=== PATIENT | female | born 1960 | race Caucasian/White ===

== ENCOUNTER 2016-11-10 12:35 | Emergency (ER) | payer SELFPAY ==
[~2016-11-10] VITALS: Ht 176.5 cm; Wt 141.6 kg
[~2016-11-10 12:35] MED LIST: ABX IV; AERONEB GO NEB1 EACH MC; ALBUTEROL SULF8.5 GM IH; ANXIETY MED PO; ASPIR 8181 M1 PO; ASPIR-LOW81 M1 PO; ATARAX,VISTARIL25 MG; ATARAX,VISTARIL25 MG PO; ATARAX,VISTARIL50 MG PO; ATORVASTATIN CA80 MG PO; ATROVENT 00.5 MG/2.5 IH; AUGMENTIN875 MG PO; Atarax,Vistaril PO; Ativan PO; B COMPLEX #11 EACH PO; B-121000 MC2 PO; BACLOFEN20 MG PO; BACTERICIN30 GM TP; BACTRIM,SEPT1 TABLET PO; BENADRYL25 MG PO; BENTYL10 MG PO; BETHANECHOL CHL25 MG PO; BRILINTA90 MG PO; Bactrim,Septra DS 80 PO; Bentyl PO; CALCIUM 500 +1 EAC5 PO; CALCIUM 600 +1 EAC2 PO; CALICUM 500+D1 EACH PO; CEFEPIME-D2 GM/50 ML IV; CEFTIN500 MG PO; CIPRO500 MG PO; CIPROFLOXACIN750 MG PO; CLARITIN,ALAVAR10 MG PO; CLEOCIN300 MG PO; COLACE100 MG PO; CONCERTA18 MG PO; CONCERTA27 MG PO; CYANOCOBALAM1000 MCG; CYANOCOBALAM1000 MCG PO; Colace PO; Concerta PO; DAILY VALUE1 EACH PO; DESYREL100 MG PO; DIAZEPAM10 MG PO; DILAUDID2 MG PO; DIPHENHIST25 M3 PO; DIPHENHYDRAMINE50 M1 PO; Dulcolax PO; ENDOCET 5-3251 EACH PO; ENOXAPARIN150 MG/1 M SC; ESCITALOPRAM OX10 MG PO; Ecotrin PO; FEOSOL325 MG PO; FEROSOL PO; FERREX 150150 MG PO; FERROUS SULFAT325 MG PO; FIORICET 50-301 EACH PO; FIORICET WI1 CAPSULE PO; FLEXERIL10 MG PO; FLEXERIL5 MG PO; FLONASE ALLERG9.9 ML BOTH NARES; FLONASE16 G1 BOTH NARES; FLOVENT 11120 INHALA IH; FUROSEMIDE40 MG PO; GABAPENTIN100 MG PO; GABAPENTIN600 MG PO; HYCODAN SYRUP480 ML PO; HYDROCODON-ACE1 EAC7 PO; HYDROCODON-ACE1 EAC8 PO; HYDROCODON-ACE1 EAC9 PO; IMDUR30 MG PO; IMITREX25 MG PO; INCRUSE ELLI62.5 MCG IH; IRON PO; IRON325 M1 PO; IRON325 MG PO; K-TAB10 MEQ PO; KEFLEX500 MG PO; KLONOPIN0.5 M1 PO; KLOR-CON 1010 ME1 PO; KLOR-CON M2020 MEQ PO; KLOR-CON20 MEQ PO; LAMICTAL200 MG PO; LANTUS 10100 UNITS/ SC; LANTUS 3 M100 UNITS1 SC; LASIX40 MG PO; LASIX80 MG PO; LEVOTHROID,S0.175 M1 PO; LEVOTHYROXINE175 MCG PO; LEVOXYL175 MCG PO; LEXAPRO10 MG PO; LEXAPRO20 MG PO; LIDODERM 5% P1 PATCH TD; LIDODERM TD; LINEZOLID600 MG PO; LIPITOR PO; LIPITOR80 MG PO; LISINOPRIL10 MG PO; LMX 530 GM TP; LO-DOSE ASPIRIN81 M1 PO; LORTAB 5-325 M1 EACH PO; LOVENOX120 MG/0.8 SC; LOVENOX150 MG/1 M PO; LOVENOX150 MG/1 M SC; LOVENOX60 MG/0.6 SC; LOVENOX80 MG/0.8 SC; LOW DOSE ASPIRI81 M1 PO; LOW DOSE ASPIRI81 M2 PO; Lasix PO; Levaquin PO; Levothroid,Synthroid PO; Lovenox SC; METOPROLOL SUCC25 MG PO; MS Contin,Oramorph S PO; Micro-K,K-Tab,K-Dur, PO; Milk Of Magnesia,MOM PO; NAPROSYN500 MG PO; NEURONTIN100 MG PO; NEURONTIN300 MG PO; NIFEREX-150,FE150 MG PO; NORCO 5/3251 TABLET PO; NOVOLIN R (UNI1 UNIT SC; NOVOLOG 10100 UNITS/ SC; NOVOLOG PE100 UNITS/ SC; Neurontin PO; Niferex-150,Ferrex 1 PO; Nizoral 2% Cream TP; OMEPRAZOLE20 MG PO; OMEPRAZOLE40 M1 PO; OXAYDO5 MG PO; OXECTA5 MG PO; OXYCODONE HCL5 MG PO; OXYCODONE10 MG PO; OxyCODONE PO; PEPCID20 MG PO; PERCOCET 5/31 TABLET PO; PERCOCET 7.51 TABLET PO; PHENERGAN25 MG PR; PLAVIX75 MG PO; POTASSIUM CHLO10 ME3 PO; PREDNISONE10 MG PO; PREDNISONE20 MG PO; PRILOSEC OTC20 M1 PO; PRILOSEC20 MG PO; PRILOSEC40 MG PO; PRINIVIL10 MG PO; PROAIR HFA8.5 GM IH; PROMETHAZINE HC25 M1 PO; PROVENTIL,2.5 MG/3 M IH; PULMICORT FLE180 MCG IH; PYRIDIUM100 MG PO; Pepcid PO; Proair HFA IH; Proventil,Ventolin H IH; RANITIDINE HCL150 MG PO; REGLAN10 MG PO; RISPERDAL0.5 MG PO; RISPERDAL1 MG PO; RITALIN LA20 MG PO; ROBITUSSIN AC,T10 ML PO; SANTYL30 GM TP; SINGULAIR10 MG PO; SKELAXIN400 M1 PO; SOMA350 MG PO; SPIRIVA RESPIMAT4 GM IH; SUMATRIPTAN SUC25 MG PO; SYNTHROID175 MCG PO; Singulair PO; TESSALON200 MG PO; TOPROL XL25 MG PO; TORADOL10 MG PO; TRAZODONE HCL100 MG PO; TYLENOL REGULA325 MG PO; TYLENOL WITH C1 EACH PO; Tylenol Regular Stre PO; VALIUM10 MG PO; VANCOMYCIN1 GM/150 M IV; VENTOLIN HFA18 GM IH; VICODIN 5-3001 EACH PO; VICODIN,LORT1 TABLET PO; VITAMIN B INJ SC; VITAMIN B-12500 MC2 PO; VITAMIN D1000 INTUN PO; VITAMIN D22000 UNIT PO; VITAMIN D31000 UNI2 PO; VITAMIN D32000 UNI1 PO; Valium PO; Vicodin,Norco 5/325 PO; Vitamin B-12 IM; WELLBUTRIN XL150 MG PO; XANAX1 MG PO; XANAX2 MG PO; XARELTO20 MG PO; ZANTAC150 MG PO; ZESTRIL10 MG PO; ZITHROMAX Z-PA250 MG PO; ZOCOR40 MG PO; ZOFRAN ODT4 MG PO; ZOFRAN ODT8 MG PO; ZOFRAN4 MG PO; ZOVIRAX400 MG PO; Zantac PO; Zocor PO; Zofran PO; [UNRECOGNIZED DRUG - OTHER] PO; oxyCODONE PO; risperDAL PO
[2016-11-10] MEDS ORDERED: FLEXERIL10 MG PO (16:13)
[2016-11-10] MEDS ORDERED: MOTRIN800 MG PO (16:13)
[2016-11-10 16:38] VITALS: BP 152/82
== END 2016-11-10 16:39 | disposition home or self-care (01) ==
LOC: EME 12:35
DX: S60.012A Contusion of left thumb without damage to nail, initial encounter (principal); S40.011A Contusion of right shoulder, initial encounter; V78.1XXA Passenger on bus injured in noncollision transport accident in nontraffic accident, initial encounter; Z88.6 Allergy status to analgesic agent; Z91.041 Radiographic dye allergy status; Z88.1 Allergy status to other antibiotic agents
CPT/HCPCS: 73030; 73070; 73090; 73130; 73502; 99281; 99284

== ENCOUNTER 2016-11-30 13:51 | Emergency (ER) | payer OTHER ==
[~2016-11-30] VITALS: Ht 175.3 cm; Wt 139.7 kg
[~2016-11-30 13:51] MED LIST changes: +MOTRIN800 MG PO
[2016-11-30] MEDS ORDERED: MOTRIN800 MG PO (15:42)
[2016-11-30 16:00] VITALS: BP 122/55
== END 2016-11-30 16:26 | disposition home or self-care (01) ==
LOC: EME 13:51
DX: S16.1XXA Strain of muscle, fascia and tendon at neck level, initial encounter (principal); V49.50XA Passenger injured in collision with unspecified motor vehicles in traffic accident, initial encounter
CPT/HCPCS: 99281; 99284

== ENCOUNTER 2016-12-30 13:06 | Emergency (ER) | payer OTHER ==
[~2016-12-30] VITALS: Ht 175.3 cm; Wt 144.2 kg
[2016-12-30 14:26] LABS: EOSINOPHIL COUNT 0.1 K/uL (0-0.3); HEMATOCRIT 33.3 % (36.0-46.0); IMMATURE GRANULOCYTE (%) 0.9 % (0.0-0.7); IMMATURE GRANULOCYTE COUNT 0.1 K/uL; INSTRUMENT ABS NEUTROPHIL CT 4.2 K/uL; LYMPHOCYTE COUNT 2.1 K/uL (1.0-2.8); MCH 27.1 PG (29.0-34.0); MCHC 30.3 G/DL (30.0-36.0); MCV 89.3 FL (83-99); MEAN PLAT.VOLUME 8.8 uM^3 (9.5-12.4); MONOCYTE (%) 7.7 % (3-12); MONOCYTE COUNT 0.5 K/uL (0-0.8); NEUTROPHIL (%) 59.5 % (45-76); NEUTROPHIL COUNT 4.2 K/uL (1.8-6.4); PLATELET COUNT 387 K/uL (156-360); RBC DIS.WIDTH-CV 15.9 % (11.8-14.6); RBC DIS.WIDTH-SD 51.8 % (39-53); RED BLOOD COUNT 3.73 M/uL (3.80-5.20)
[2016-12-30 14:35] LABS: CHLORIDE 104 mEq/L (99-109); SODIUM 142 mEq/L (136-147)
[2016-12-30 14:36] LABS: GLUCOSE 71 mg/dL (70-99)
[2016-12-30 14:38] LABS: ANION GAP 9 MEQ/L (2-14)
[2016-12-30 14:40] LABS: GFR ESTIMATE (CALCULATED) > 59 mL/min/
[2016-12-30 14:41] LABS: UREA NITROGEN (BUN) 19 mg/dL (9-23)
[2016-12-30 14:55] LABS: INTER. NORMALIZED RATIO 1.1; PROTHROMBIN TIME 11.5 (9.2-11.2); PTT 35.7 (25-32)
[2016-12-30] MEDS ORDERED: PHENERGAN25 MG PR (17:27)
[2016-12-30 18:00] VITALS: BP 113/49
== END 2016-12-30 18:00 | disposition home or self-care (01) ==
LOC: EME 13:06
PROVIDERS: Physician Assistant
DX: L03.116 Cellulitis of left lower limb (principal); I82.512 Chronic embolism and thrombosis of left femoral vein; I82.532 Chronic embolism and thrombosis of left popliteal vein; L98.499 Non-pressure chronic ulcer of skin of other sites with unspecified severity; A49.02 Methicillin resistant Staphylococcus aureus infection, unspecified site; R11.2 Nausea with vomiting, unspecified; Z86.711 Personal history of pulmonary embolism; Z95.5 Presence of coronary angioplasty implant and graft; Z79.01 Long term (current) use of anticoagulants; Z87.891 Personal history of nicotine dependence
CPT/HCPCS: 80048; 83605; 85025; 85610; 85730; 87040; 93971; 99281; 99285; J2270; J2543

== ENCOUNTER → 2017-01-07 | Outpatient (CLI) | payer OTHER | END | disposition home or self-care (01) | LOC: PICC 08:35 | DX: L03.116 Cellulitis of left lower limb (principal) | CPT/HCPCS: 76937; C1894 ==

== ENCOUNTER 2017-02-14 19:58 | Inpatient (IN) | payer OTHER ==
[~2017-02-14] VITALS: Ht 176.5 cm; Wt 116.0 kg
[~2017-02-14 19:58] MED LIST changes: +PROTONIX40 MG PO
[2017-02-14 23:16] LABS: HEMATOCRIT 31.1 % (36.0-46.0); MCH 28.1 PG (29.0-34.0); MCHC 30.9 G/DL (30.0-36.0); MCV 90.9 FL (83-99); MEAN PLAT.VOLUME 8.7 uM^3 (9.5-12.4); PLATELET COUNT 286 K/uL (156-360); RBC DIS.WIDTH-CV 16.3 % (11.8-14.6); RBC DIS.WIDTH-SD 53.9 % (39-53); RED BLOOD COUNT 3.42 M/uL (3.80-5.20); WHITE BLOOD COUNT 5.6 K/uL (4.1-10.2)
[2017-02-14 23:23] LABS: CHLORIDE 107 mEq/L (99-109); POTASSIUM 3.8 mEq/L (3.7-5.4); SODIUM 144 mEq/L (136-147)
[2017-02-14 23:25] LABS: GLUCOSE 84 mg/dL (70-99)
[2017-02-14 23:26] LABS: ANION GAP 9 MEQ/L (2-14)
[2017-02-14 23:29] LABS: GFR ESTIMATE (CALCULATED) > 59 mL/min/; UREA NITROGEN (BUN) 15 mg/dL (9-23)
[2017-02-15 00:49] LABS: ADD MIUA? NO; BILIRUBIN NEGATIVE; BLOOD NEGATIVE; COLOR YELLOW ((YELLOW)); GLUCOSE (STRIP) NEGATIVE; KETONES NEGATIVE; LEUKOCYTES NEGATIVE; NITRITE NEGATIVE; PROTEIN (STRIP) 30; SPECIFIC GRAVITY 1.025 (1.000-1.030); UROBILINOGEN 0.2 MG/DL (0.2-1.0)
[2017-02-15] MEDS ORDERED: LEVOTHYROXINE175 MCG PO (02:10)
[2017-02-15] MEDS ORDERED: METOPROLOL SUCC25 MG PO (02:10)
[2017-02-15] MEDS ORDERED: CLOPIDOGREL75 MG PO (02:10)
[2017-02-15] MEDS ORDERED: MONTELUKAST SOD10 MG PO (02:10)
[2017-02-15] MEDS ORDERED: GABAPENTIN600 MG PO (02:11)
[2017-02-15] MEDS ORDERED: FUROSEMIDE40 MG PO (02:13)
[2017-02-15] MEDS ORDERED: BUPROPION XL150 MG PO (02:13)
[2017-02-15 05:39] VITALS: BP 147/79
[2017-02-15 06:27] LABS: HEMATOCRIT 30.5 % (36.0-46.0); MCH 28.7 PG (29.0-34.0); MCHC 31.5 G/DL (30.0-36.0); PLATELET COUNT 273 K/uL (156-360); RBC DIS.WIDTH-CV 16.3 % (11.8-14.6); RBC DIS.WIDTH-SD 55.1 % (39-53); RED BLOOD COUNT 3.35 M/uL (3.80-5.20); WHITE BLOOD COUNT 4.7 K/uL (4.1-10.2)
[2017-02-15 07:34] LABS: ALKALINE PHOSPHATASE 50 IU/L (3-129); ANION GAP 10 MEQ/L (2-14); CHLORIDE 107 MEQ/L (99-109); GFR ESTIMATE (CALCULATED) > 59 mL/min/; POTASSIUM 4.1 MEQ/L (3.7-5.4); SAMPLE HEMOLYSIS CHECK 0; SAMPLE ICTERIC CHECK 0; SAMPLE LIPEMIA CHECK 0; SODIUM 144 MEQ/L (136-147); TOTAL BILIRUBIN 0.2 MG/DL (0.0-1.0); UREA NITROGEN (BUN) 15 mg/dL (9-23)
[2017-02-15 07:51] LABS: GLUCOSE 161 mg/dL (70-99)
[2017-02-15 08:15] VITALS: BP 125/72
[2017-02-15 12:06] VITALS: BP 112/67
[2017-02-15 15:37] VITALS: BP 130/67
[2017-02-15 19:55] VITALS: BP 130/74
[2017-02-15 23:46] VITALS: BP 129/70
[2017-02-16 03:35] VITALS: BP 124/71
[2017-02-16 08:03] VITALS: BP 112/61
[2017-02-16 11:45] VITALS: BP 123/64
[2017-02-16 16:01] VITALS: BP 127/72
[2017-02-16 19:49] VITALS: BP 120/69
[2017-02-17] VITALS: BP 123/68
[2017-02-17 03:36] VITALS: BP 122/65
[2017-02-17] MEDS ORDERED: AMITRIPTYLINE H25 MG PO (07:43)
[2017-02-17 07:51] VITALS: BP 114/66
[2017-02-17] MEDS ORDERED: GABAPENTIN600 MG PO (11:20)
[2017-02-17] MEDS ORDERED: LOVENOX80 MG/0.8 SC (11:20)
[2017-02-17] MEDS ORDERED: TRAZODONE HCL100 MG PO (11:20)
[2017-02-17] MEDS ORDERED: FUROSEMIDE40 MG PO (11:21)
[2017-02-17] MEDS ORDERED: LEVOTHYROXINE175 MCG PO (11:21)
[2017-02-17] MEDS ORDERED: XANAX1 MG PO (11:22)
[2017-02-17] MEDS ORDERED: HYDROCODON-ACE1 EAC9 PO (11:22)
[2017-02-17] MEDS ORDERED: NEURONTIN300 MG PO (11:33)
[2017-02-17] MEDS ORDERED: OMEPRAZOLE40 M1 PO (11:35)
[2017-02-17] MEDS ORDERED: KLOR-CON M2020 MEQ PO (11:36)
[2017-02-17] MEDS ORDERED: FERROUS SULFAT325 MG PO (11:37)
[2017-02-17] MEDS ORDERED: VITAMIN D22000 UNIT PO (11:37)
[2017-02-17] MEDS ORDERED: B-COMPLEX-VITA1 EACH PO (11:38)
[2017-02-17] MEDS ORDERED: DIPHENHYDRAMINE50 M1 PO (11:38)
[2017-02-17] MEDS ORDERED: CALCIUM600 M1 PO (11:39)
[2017-02-17] MEDS ORDERED: LISINOPRIL10 MG PO (11:39)
[2017-02-17] MEDS ORDERED: ISOSORBIDE MONO30 MG PO (11:39)
[2017-02-17] MEDS ORDERED: VITAMIN B-12500 MC5 SL (11:40)
[2017-02-17] MEDS ORDERED: VENTOLIN HFA18 GM IH (11:40)
[2017-02-17 12:26] VITALS: BP 104/63
== END 2017-02-17 13:51 | disposition home health service (06) | DRG 103 ==
LOC: EME 19:58 → 5SOUTH 02-15 03:18 → EDOF 02-15 03:18 → 5SOUTH 02-15 05:29
PROVIDERS: Internal Medicine; Physician Assistant
DX: R51 Headache (principal); L97.829 Non-pressure chronic ulcer of other part of left lower leg with unspecified severity; I89.0 Lymphedema, not elsewhere classified; J32.9 Chronic sinusitis, unspecified; I48.0 Paroxysmal atrial fibrillation; J44.9 Chronic obstructive pulmonary disease, unspecified; E78.5 Hyperlipidemia, unspecified; I25.10 Atherosclerotic heart disease of native coronary artery without angina pectoris; F31.9 Bipolar disorder, unspecified; I87.8 Other specified disorders of veins; I10 Essential (primary) hypertension; D50.9 Iron deficiency anemia, unspecified; E03.9 Hypothyroidism, unspecified; I71.2 Thoracic aortic aneurysm, without rupture; I51.7 Cardiomegaly; E66.01 Morbid (severe) obesity due to excess calories; Z90.49 Acquired absence of other specified parts of digestive tract; Z68.37 Body mass index [BMI] 37.0-37.9, adult; Z87.891 Personal history of nicotine dependence; Z95.5 Presence of coronary angioplasty implant and graft; Z86.711 Personal history of pulmonary embolism; Z86.718 Personal history of other venous thrombosis and embolism; Z79.01 Long term (current) use of anticoagulants; Z86.73 Personal history of transient ischemic attack (TIA), and cerebral infarction without residual deficits; Z76.5 Malingerer [conscious simulation]
CPT/HCPCS: 70450; 70551; 80048; 80053; 81003; 85027; 99281; 99285; A6260; J1100; J1650; J2060; J2405; J2765; J2930; J3030; J7030

== ENCOUNTER 2017-03-09 11:37 | Emergency (ER) | payer OTHER ==
[~2017-03-09] VITALS: Ht 175.3 cm; Wt 137.5 kg
[~2017-03-09 11:37] MED LIST changes: +AMITRIPTYLINE H25 MG PO; +B-COMPLEX-VITA1 EACH PO; +BUPROPION XL150 MG PO; +CALCIUM600 M1 PO; +CLOPIDOGREL75 MG PO; +ISOSORBIDE MONO30 MG PO; +MONTELUKAST SOD10 MG PO; +VITAMIN B-12500 MC5 SL
[2017-03-09 14:08] LABS: EOSINOPHIL (%) 2.2 % (0-5); EOSINOPHIL COUNT 0.1 K/uL (0-0.3); HEMATOCRIT 31.6 % (36.0-46.0); IMMATURE GRANULOCYTE (%) 0.4 % (0.0-0.7); INSTRUMENT ABS NEUTROPHIL CT 2.9 K/uL; LYMPHOCYTE COUNT 1.8 K/uL (1.0-2.8); MCH 28.1 PG (29.0-34.0); MCHC 30.1 G/DL (30.0-36.0); MCV 93.5 FL (83-99); MEAN PLAT.VOLUME 8.7 uM^3 (9.5-12.4); MONOCYTE (%) 8.2 % (3-12); MONOCYTE COUNT 0.4 K/uL (0-0.8); NEUTROPHIL COUNT 2.9 K/uL (1.8-6.4); RBC DIS.WIDTH-CV 15.5 % (11.8-14.6); RBC DIS.WIDTH-SD 53.1 % (39-53); RED BLOOD COUNT 3.38 M/uL (3.80-5.20); WHITE BLOOD COUNT 5.4 K/uL (4.1-10.2)
[2017-03-09 14:09] LABS: PLATELET COUNT 355 K/uL (156-360)
[2017-03-09 14:15] LABS: CHLORIDE 106 mEq/L (99-109); POTASSIUM 3.8 mEq/L (3.7-5.4); SODIUM 141 mEq/L (136-147)
[2017-03-09 14:16] LABS: GLUCOSE 84 mg/dL (70-99)
[2017-03-09 14:18] LABS: ANION GAP 11 MEQ/L (2-14)
[2017-03-09 14:20] LABS: GFR ESTIMATE (CALCULATED) > 59 mL/min/
[2017-03-09 14:21] LABS: UREA NITROGEN (BUN) 13 mg/dL (9-23)
[2017-03-09] MEDS ORDERED: NORCO 5/3251 TABLET PO (20:34)
[2017-03-09 21:15] VITALS: BP 151/95
[2017-03-13] MEDS ORDERED: ELAVIL25 MG PO (08:35)
[2017-03-13] MEDS ORDERED: TOPAMAX50 MG PO (08:36)
[2017-03-15] MEDS ORDERED: PREDNISONE20 MG PO (16:48)
== END 2017-03-09 21:17 | disposition home or self-care (01) ==
LOC: EME 11:37
DX: L03.116 Cellulitis of left lower limb (principal); S81.802A Unspecified open wound, left lower leg, initial encounter; D64.9 Anemia, unspecified; K21.9 Gastro-esophageal reflux disease without esophagitis; J44.9 Chronic obstructive pulmonary disease, unspecified; E78.5 Hyperlipidemia, unspecified; I48.91 Unspecified atrial fibrillation; I10 Essential (primary) hypertension; Z86.73 Personal history of transient ischemic attack (TIA), and cerebral infarction without residual deficits; Z87.891 Personal history of nicotine dependence; Z87.442 Personal history of urinary calculi
CPT/HCPCS: 73590; 80048; 83605; 85025; 87040; 99281; 99285; J0696; J2270; J7050

== ENCOUNTER 2017-03-27 19:58 | Inpatient (IN) | payer OTHER ==
[~2017-03-27] VITALS: Ht 175.3 cm; Wt 137.6 kg
[~2017-03-27 19:58] MED LIST changes: +ELAVIL25 MG PO; +TOPAMAX50 MG PO
[2017-03-27 20:32] LABS: HEMATOCRIT 35.4 % (36.0-46.0); MCH 28.1 PG (29.0-34.0); MCHC 30.2 G/DL (30.0-36.0); MCV 92.9 FL (83-99); PLATELET COUNT 313 K/uL (156-360); RBC DIS.WIDTH-SD 54.4 % (39-53); RED BLOOD COUNT 3.81 M/uL (3.80-5.20); WHITE BLOOD COUNT 12.4 K/uL (4.1-10.2)
[2017-03-27 20:43] LABS: CHLORIDE 105 mEq/L (99-109); POTASSIUM 4.2 mEq/L (3.7-5.4); SODIUM 138 mEq/L (136-147)
[2017-03-27 20:45] LABS: GLUCOSE 167 mg/dL (70-99)
[2017-03-27 20:46] LABS: ANION GAP 11 MEQ/L (2-14)
[2017-03-27 20:49] LABS: GFR ESTIMATE (CALCULATED) > 59 mL/min/; UREA NITROGEN (BUN) 26 mg/dL (9-23)
[2017-03-27 20:53] LABS: TROP-I INTERPRETATION NEGATIVE; TROPONIN-I < 0.01 ng/mL (0.0-0.30)
[2017-03-27] MEDS ORDERED: CALCIUM 600 +1 EAC2 PO (22:15)
[2017-03-27] MEDS ORDERED: NEURONTIN800 MG PO (22:17)
[2017-03-27] MEDS ORDERED: HYDROCODON-ACE1 EAC9 PO (22:18)
[2017-03-27] MEDS ORDERED: ZOFRAN4 MG PO (22:19)
[2017-03-27] MEDS ORDERED: IBUPROFEN800 MG PO (22:20)
[2017-03-27] MEDS ORDERED: ISOSORBIDE MONO30 MG PO (22:20)
[2017-03-27] MEDS ORDERED: PROVENTIL,2.5 MG/3 M IH (22:20)
[2017-03-27 23:01] LABS: HDL CHOLESTEROL 55 MG/DL (Desirable>=50); LDL CHOLESTEROL 93 mg/dL (Desirable<100); NON-HDL CHOLESTEROL 128 mg/dL (Desirable<160); TOTAL CHOLESTEROL 183 mg/dL (Desirable<200); TRIGLYCERIDES 174 MG/DL (Normal: <150)
[2017-03-28 00:01] VITALS: BP 100/53
[2017-03-28 04:04] VITALS: BP 106/51
[2017-03-28 07:40] VITALS: BP 100/62
[2017-03-28 09:41] LABS: TROP-I INTERPRETATION NEGATIVE; TROPONIN-I < 0.01 ng/mL (0.0-0.30)
[2017-03-28 11:43] VITALS: BP 90/55
[2017-03-28 15:12] VITALS: BP 105/56
[2017-03-28 20:00] VITALS: BP 122/62
[2017-03-29 05:45] LABS: EOSINOPHIL (%) 0.1 % (0-5); HEMATOCRIT 32.8 % (36.0-46.0); IMMATURE GRANULOCYTE (%) 2.1 % (0.0-0.7); IMMATURE GRANULOCYTE COUNT 0.2 K/uL; INSTRUMENT ABS NEUTROPHIL CT 7.1 K/uL; LYMPHOCYTE COUNT 2.7 K/uL (1.0-2.8); MCH 28.9 PG (29.0-34.0); MCHC 30.5 G/DL (30.0-36.0); MCV 94.8 FL (83-99); MEAN PLAT.VOLUME 8.9 uM^3 (9.5-12.4); MONOCYTE (%) 6.2 % (3-12); MONOCYTE COUNT 0.7 K/uL (0-0.8); NEUTROPHIL (%) 66.4 % (45-76); NEUTROPHIL COUNT 7.1 K/uL (1.8-6.4); NRBC (%) 0.3 /100 WBC (0-0); PLATELET COUNT 255 K/uL (156-360); RBC DIS.WIDTH-CV 16.2 % (11.8-14.6); RBC DIS.WIDTH-SD 56.1 % (39-53); RED BLOOD COUNT 3.46 M/uL (3.80-5.20); WHITE BLOOD COUNT 10.7 K/uL (4.1-10.2)
[2017-03-29 06:12] LABS: ANION GAP 6 MEQ/L (2-14); CHLORIDE 99 MEQ/L (99-109); GFR ESTIMATE (CALCULATED) > 59 mL/min/; POTASSIUM 4.5 MEQ/L (3.7-5.4); SAMPLE HEMOLYSIS CHECK 0; SAMPLE ICTERIC CHECK 0; SAMPLE LIPEMIA CHECK 0; SODIUM 139 MEQ/L (136-147); UREA NITROGEN (BUN) 21 mg/dL (9-23)
[2017-03-29 06:23] LABS: GLUCOSE 90 mg/dL (70-99)
[2017-03-29 08:05] VITALS: BP 132/63
[2017-03-29] MEDS ORDERED: FLEXERIL5 MG PO (12:50)
== END 2017-03-29 14:48 | disposition home or self-care (01) | DRG 309 ==
LOC: EME 19:58 → EDOF 22:06 → 5WEST 23:13
PROVIDERS: Physician Assistant Medical; Student in an Organized Health Care Education/Training Program
DX: R00.2 Palpitations (principal); I82.402 Acute embolism and thrombosis of unspecified deep veins of left lower extremity; L97.929 Non-pressure chronic ulcer of unspecified part of left lower leg with unspecified severity; Z68.41 Body mass index [BMI] 40.0-44.9, adult; K21.9 Gastro-esophageal reflux disease without esophagitis; I25.10 Atherosclerotic heart disease of native coronary artery without angina pectoris; J44.9 Chronic obstructive pulmonary disease, unspecified; F31.9 Bipolar disorder, unspecified; E78.5 Hyperlipidemia, unspecified; F41.9 Anxiety disorder, unspecified; G47.33 Obstructive sleep apnea (adult) (pediatric); I87.8 Other specified disorders of veins; I48.0 Paroxysmal atrial fibrillation; I11.0 Hypertensive heart disease with heart failure; I25.2 Old myocardial infarction; I50.9 Heart failure, unspecified; E66.01 Morbid (severe) obesity due to excess calories; Z87.891 Personal history of nicotine dependence; Z82.49 Family history of ischemic heart disease and other diseases of the circulatory system; Z79.899 Other long term (current) drug therapy; Z95.1 Presence of aortocoronary bypass graft
CPT/HCPCS: 71020; 78582; 80048; 80061; 84439; 84443; 84484; 85025; 85027; 93005; 94799; 99202; 99281; 99285; A6260; A9540; A9567; G0378; J1170; J1650; J7512

== ENCOUNTER 2017-04-17 21:55 | Emergency (ER) | payer OTHER ==
[~2017-04-17] VITALS: Ht 175.3 cm; Wt 148.6 kg
[~2017-04-17 21:55] MED LIST changes: +IBUPROFEN800 MG PO; +NEURONTIN800 MG PO
[2017-04-18 03:40] LABS: HEMATOCRIT 33.8 % (36.0-46.0); MCH 28.8 PG (29.0-34.0); MCHC 30.5 G/DL (30.0-36.0); MCV 94.4 FL (83-99); MEAN PLAT.VOLUME 8.5 uM^3 (9.5-12.4); PLATELET COUNT 247 K/uL (156-360); RBC DIS.WIDTH-CV 16.8 % (11.8-14.6); RBC DIS.WIDTH-SD 58.3 % (39-53); RED BLOOD COUNT 3.58 M/uL (3.80-5.20); WHITE BLOOD COUNT 7.9 K/uL (4.1-10.2)
[2017-04-18 03:49] LABS: CHLORIDE 100 mEq/L (99-109); POTASSIUM 4.3 mEq/L (3.7-5.4); SODIUM 140 mEq/L (136-147)
[2017-04-18 03:51] LABS: GLUCOSE 82 mg/dL (70-99)
[2017-04-18 03:52] LABS: ANION GAP 8 MEQ/L (2-14)
[2017-04-18 03:55] LABS: GFR ESTIMATE (CALCULATED) > 59 mL/min/; UREA NITROGEN (BUN) 24 mg/dL (9-23)
[2017-04-18 04:31] VITALS: BP 128/90
[2017-04-18 04:52] LABS: ERTH.SED.RATE 43 MM/HR (0-30)
[2017-04-18 06:29] LABS: C-REACTIVE PROTEIN 12.8 MG/L (0-10); SAMPLE HEMOLYSIS CHECK 0; SAMPLE ICTERIC CHECK 0; SAMPLE LIPEMIA CHECK 0
[2017-04-20] MEDS ORDERED: PERCOCET 5/31 TABLET PO (09:01)
== END 2017-04-18 04:35 | disposition home or self-care (01) ==
LOC: EME 21:55
PROVIDERS: Emergency Medicine
DX: S80.12XA Contusion of left lower leg, initial encounter (principal); W01.198A Fall on same level from slipping, tripping and stumbling with subsequent striking against other object, initial encounter; L03.116 Cellulitis of left lower limb; Z88.1 Allergy status to other antibiotic agents; Z79.52 Long term (current) use of systemic steroids; Z79.02 Long term (current) use of antithrombotics/antiplatelets
CPT/HCPCS: 73590; 73630; 73700; 80048; 85027; 85651; 86140; 99281; 99283

== ENCOUNTER 2017-04-30 23:38 | Emergency (ER) | payer OTHER ==
[~2017-04-30] VITALS: Ht 175.3 cm; Wt 153.1 kg
[2017-05-01 00:23] LABS: HEMATOCRIT 37.6 % (36.0-46.0); MCH 28.5 PG (29.0-34.0); MCHC 30.6 G/DL (30.0-36.0); MCV 93.1 FL (83-99); MEAN PLAT.VOLUME 8.8 uM^3 (9.5-12.4); PLATELET COUNT 257 K/uL (156-360); RBC DIS.WIDTH-CV 16.6 % (11.8-14.6); RED BLOOD COUNT 4.04 M/uL (3.80-5.20)
[2017-05-01 00:35] LABS: CHLORIDE 100 mEq/L (99-109); POTASSIUM 4.1 mEq/L (3.7-5.4); SODIUM 139 mEq/L (136-147)
[2017-05-01 00:37] LABS: GLUCOSE 87 mg/dL (70-99)
[2017-05-01 00:38] LABS: ANION GAP 11 MEQ/L (2-14)
[2017-05-01 00:41] LABS: GFR ESTIMATE (CALCULATED) > 59 mL/min/
[2017-05-01 00:42] LABS: UREA NITROGEN (BUN) 22 mg/dL (9-23)
[2017-05-01] MEDS ORDERED: TESSALON PERLE100 MG PO (02:24)
[2017-05-01 03:17] VITALS: BP 108/64
== END 2017-05-01 03:26 | disposition home or self-care (01) ==
LOC: EME 23:38
DX: J44.1 Chronic obstructive pulmonary disease with (acute) exacerbation (principal); J45.909 Unspecified asthma, uncomplicated; I10 Essential (primary) hypertension; Z86.711 Personal history of pulmonary embolism; Z86.718 Personal history of other venous thrombosis and embolism; Z95.5 Presence of coronary angioplasty implant and graft; Z79.02 Long term (current) use of antithrombotics/antiplatelets; Z79.52 Long term (current) use of systemic steroids
CPT/HCPCS: 71020; 80048; 85027; 94640; 94644; 99281; 99284; J7512

== ENCOUNTER 2017-05-08 17:24 | Emergency (ER) | payer OTHER ==
[~2017-05-08] VITALS: Ht 175.3 cm; Wt 153.1 kg
[~2017-05-08 17:24] MED LIST changes: +TESSALON PERLE100 MG PO
[2017-05-08 18:26] LABS: HEMATOCRIT 35.6 % (36.0-46.0); MCH 27.9 PG (29.0-34.0); MCHC 30.1 G/DL (30.0-36.0); MCV 92.7 FL (83-99); MEAN PLAT.VOLUME 8.7 uM^3 (9.5-12.4); PLATELET COUNT 229 K/uL (156-360); RBC DIS.WIDTH-CV 16.5 % (11.8-14.6); RBC DIS.WIDTH-SD 56.4 % (39-53); RED BLOOD COUNT 3.84 M/uL (3.80-5.20); WHITE BLOOD COUNT 9.1 K/uL (4.1-10.2)
[2017-05-08 18:38] LABS: CHLORIDE 104 mEq/L (99-109); POTASSIUM 4.6 mEq/L (3.7-5.4); SODIUM 140 mEq/L (136-147)
[2017-05-08 18:40] LABS: GLUCOSE 110 mg/dL (70-99)
[2017-05-08 18:41] LABS: ANION GAP 10 MEQ/L (2-14)
[2017-05-08 18:44] LABS: GFR ESTIMATE (CALCULATED) > 59 mL/min/
[2017-05-08 18:45] LABS: UREA NITROGEN (BUN) 28 mg/dL (9-23)
[2017-05-08 18:52] LABS: TROP-I INTERPRETATION NEGATIVE; TROPONIN-I < 0.01 ng/mL (0.0-0.30)
[2017-05-08 19:08] LABS: D-DIMER ELISA < 150.00 ng/mLDDU (<230)
[2017-05-08 20:37] LABS: TROP-I INTERPRETATION NEGATIVE; TROPONIN-I < 0.01 ng/mL (0.0-0.30)
[2017-05-08] MEDS ORDERED: VALIUM5 MG PO (20:41)
[2017-05-08] MEDS ORDERED: PERCOCET 5/31 TABLET PO (20:41)
[2017-05-08 20:53] VITALS: BP 154/92
== END 2017-05-08 20:54 | disposition home or self-care (01) ==
LOC: EME 17:24
PROVIDERS: Emergency Medicine
DX: R07.89 Other chest pain (principal); I10 Essential (primary) hypertension; J44.9 Chronic obstructive pulmonary disease, unspecified; K21.9 Gastro-esophageal reflux disease without esophagitis; E78.5 Hyperlipidemia, unspecified; R56.9 Unspecified convulsions; I25.2 Old myocardial infarction; Z95.5 Presence of coronary angioplasty implant and graft; Z87.442 Personal history of urinary calculi; Z86.718 Personal history of other venous thrombosis and embolism; Z86.711 Personal history of pulmonary embolism
CPT/HCPCS: 71020; 80048; 84484; 85027; 85379; 93005; 99281; 99284; J2270; J3360

== ENCOUNTER 2017-06-02 00:07 | Emergency (ER) | payer OTHER ==
[~2017-06-02] VITALS: Ht 175.3 cm; Wt 153.0 kg
[~2017-06-02 00:07] MED LIST changes: +VALIUM5 MG PO
[2017-06-02 01:12] LABS: HEMATOCRIT 29.1 % (36.0-46.0); MCH 28.3 PG (29.0-34.0); MCHC 30.6 G/DL (30.0-36.0); MCV 92.7 FL (83-99); RBC DIS.WIDTH-CV 15.9 % (11.8-14.6); RBC DIS.WIDTH-SD 53.1 % (39-53); RED BLOOD COUNT 3.14 M/uL (3.80-5.20); WHITE BLOOD COUNT 7.5 K/uL (4.1-10.2)
[2017-06-02 01:17] LABS: CHLORIDE 103 mEq/L (99-109); SODIUM 138 mEq/L (136-147)
[2017-06-02 01:19] LABS: GLUCOSE 122 mg/dL (70-99)
[2017-06-02 01:20] LABS: ANION GAP 13 MEQ/L (2-14)
[2017-06-02 01:23] LABS: GFR ESTIMATE (CALCULATED) > 59 mL/min/
[2017-06-02 01:24] LABS: UREA NITROGEN (BUN) 23 mg/dL (9-23)
[2017-06-02 02:31] LABS: MEAN PLAT.VOLUME 10.3 uM^3 (9.5-12.4); PLAT.SUFFICIENCY ADEQUATE
[2017-06-02 02:32] LABS: PLATELET COUNT 157 K/uL (156-360)
[2017-06-02 03:38] LABS: MCH 28.1 PG (29.0-34.0); MCHC 30.3 G/DL (30.0-36.0); MCV 92.7 FL (83-99); MEAN PLAT.VOLUME 8.9 uM^3 (9.5-12.4); RBC DIS.WIDTH-CV 15.9 % (11.8-14.6); RBC DIS.WIDTH-SD 53.8 % (39-53); RED BLOOD COUNT 3.13 M/uL (3.80-5.20); WHITE BLOOD COUNT 9.9 K/uL (4.1-10.2)
[2017-06-02 03:40] LABS: PLATELET COUNT 272 K/uL (156-360)
[2017-06-02 05:45] VITALS: BP 115/81
== END 2017-06-02 05:50 | disposition home or self-care (01) ==
LOC: EME → EDBD 00:07 → EME 05:50
PROVIDERS: Emergency Medicine
DX: L97.929 Non-pressure chronic ulcer of unspecified part of left lower leg with unspecified severity (principal); R58 Hemorrhage, not elsewhere classified; D64.9 Anemia, unspecified; Z79.01 Long term (current) use of anticoagulants; J44.9 Chronic obstructive pulmonary disease, unspecified; E78.5 Hyperlipidemia, unspecified; I10 Essential (primary) hypertension; R56.9 Unspecified convulsions; I25.2 Old myocardial infarction; Z87.442 Personal history of urinary calculi; Z86.718 Personal history of other venous thrombosis and embolism; Z88.6 Allergy status to analgesic agent; Z88.1 Allergy status to other antibiotic agents
CPT/HCPCS: 80048; 85027; 99281; 99284; J1200; J2270; J2405; J2765; J7030

== ENCOUNTER 2017-06-10 16:17 | Emergency (ER) | payer OTHER ==
[~2017-06-10] VITALS: Ht 175.3 cm; Wt 152.3 kg
[2017-06-10 18:18] LABS: HEMATOCRIT 27.7 % (36.0-46.0); MCH 28.1 PG (29.0-34.0); MCHC 29.2 G/DL (30.0-36.0); MCV 96.2 FL (83-99); MEAN PLAT.VOLUME 9.2 uM^3 (9.5-12.4); NRBC (%) 0.3 /100 WBC (0-0); PLATELET COUNT 379 K/uL (156-360); RBC DIS.WIDTH-CV 17.1 % (11.8-14.6); RBC DIS.WIDTH-SD 58.4 % (39-53); RED BLOOD COUNT 2.88 M/uL (3.80-5.20); WHITE BLOOD COUNT 7.1 K/uL (4.1-10.2)
[2017-06-10 21:22] VITALS: BP 165/67
[2017-06-11] MEDS ORDERED: KADIAN10 MG PO (11:58)
== END 2017-06-10 21:25 | disposition home or self-care (01) ==
LOC: EME 16:17
DX: D64.9 Anemia, unspecified (principal); I11.0 Hypertensive heart disease with heart failure; I50.9 Heart failure, unspecified; J44.9 Chronic obstructive pulmonary disease, unspecified; E78.5 Hyperlipidemia, unspecified; K21.9 Gastro-esophageal reflux disease without esophagitis; I25.2 Old myocardial infarction; F32.9 Major depressive disorder, single episode, unspecified; F41.9 Anxiety disorder, unspecified; Z95.5 Presence of coronary angioplasty implant and graft; Z87.442 Personal history of urinary calculi; Z88.0 Allergy status to penicillin; Z79.02 Long term (current) use of antithrombotics/antiplatelets
CPT/HCPCS: 85027; 86850; 86900; 86901; 86920; 99281; 99284

== ENCOUNTER 2017-06-12 00:20 | Emergency (ER) | payer OTHER ==
[~2017-06-12] VITALS: Ht 175.3 cm; Wt 151.4 kg
[~2017-06-12 00:20] MED LIST changes: +KADIAN10 MG PO
[2017-06-12 02:29] LABS: HEMATOCRIT 27.6 % (36.0-46.0); MCH 28.1 PG (29.0-34.0); MCHC 30.4 G/DL (30.0-36.0); MCV 92.3 FL (83-99); MEAN PLAT.VOLUME 8.6 uM^3 (9.5-12.4); PLATELET COUNT 334 K/uL (156-360); RBC DIS.WIDTH-CV 18.9 % (11.8-14.6); RBC DIS.WIDTH-SD 61.1 % (39-53); RED BLOOD COUNT 2.99 M/uL (3.80-5.20); WHITE BLOOD COUNT 5.9 K/uL (4.1-10.2)
[2017-06-12 02:42] LABS: CHLORIDE 105 mEq/L (99-109); POTASSIUM 4.1 mEq/L (3.7-5.4); SODIUM 141 mEq/L (136-147)
[2017-06-12 02:43] LABS: GLUCOSE 96 mg/dL (70-99)
[2017-06-12 02:45] LABS: ANION GAP 11 MEQ/L (2-14)
[2017-06-12 02:47] LABS: GFR ESTIMATE (CALCULATED) > 59 mL/min/
[2017-06-12 02:48] LABS: UREA NITROGEN (BUN) 15 mg/dL (9-23)
[2017-06-12 04:03] VITALS: BP 104/62
== END 2017-06-12 04:04 | disposition home or self-care (01) ==
LOC: EME 00:20
PROVIDERS: Emergency Medicine
DX: D64.89 Other specified anemias (principal); L03.116 Cellulitis of left lower limb; L29.9 Pruritus, unspecified; R51 Headache; R50.9 Fever, unspecified; I10 Essential (primary) hypertension; J44.9 Chronic obstructive pulmonary disease, unspecified; Z79.02 Long term (current) use of antithrombotics/antiplatelets; Z95.5 Presence of coronary angioplasty implant and graft; Z86.711 Personal history of pulmonary embolism; Z86.718 Personal history of other venous thrombosis and embolism; Z87.891 Personal history of nicotine dependence
CPT/HCPCS: 80048; 85027; 99281; 99284

== ENCOUNTER 2017-06-21 14:35 | Emergency (ER) | payer OTHER ==
[~2017-06-21] VITALS: Ht 176.5 cm; Wt 146.0 kg
[2017-06-21 15:29] LABS: HEMATOCRIT 32.4 % (36.0-46.0); MCH 28.3 PG (29.0-34.0); MCHC 30.6 G/DL (30.0-36.0); MCV 92.6 FL (83-99); MEAN PLAT.VOLUME 8.5 uM^3 (9.5-12.4); PLATELET COUNT 317 K/uL (156-360); RBC DIS.WIDTH-CV 16.7 % (11.8-14.6); RBC DIS.WIDTH-SD 56.6 % (39-53); WHITE BLOOD COUNT 6.6 K/uL (4.1-10.2)
[2017-06-21 15:37] LABS: CHLORIDE 104 mEq/L (99-109); SODIUM 140 mEq/L (136-147)
[2017-06-21 15:40] LABS: GLUCOSE 107 mg/dL (70-99)
[2017-06-21 15:41] LABS: ANION GAP 9 MEQ/L (2-14); TOTAL BILIRUBIN 0.6 mg/dL (0.0-1.0)
[2017-06-21 15:43] LABS: ALKALINE PHOSPHATASE 87 IU/L (3-129); GFR ESTIMATE (CALCULATED) > 59 mL/min/
[2017-06-21 15:44] LABS: UREA NITROGEN (BUN) 16 mg/dL (9-23)
[2017-06-21 19:03] LABS: INFLUENZA A VIRAL ANTIGEN NEGATIVE; INFLUENZA B VIRAL ANTIGEN NEGATIVE
[2017-06-21 21:03] VITALS: BP 106/56
== END 2017-06-21 21:05 | disposition home or self-care (01) ==
LOC: EME 14:35
PROVIDERS: Emergency Medicine
DX: L03.116 Cellulitis of left lower limb (principal); R68.83 Chills (without fever); I11.0 Hypertensive heart disease with heart failure; I50.9 Heart failure, unspecified; J44.9 Chronic obstructive pulmonary disease, unspecified; E78.5 Hyperlipidemia, unspecified; K21.9 Gastro-esophageal reflux disease without esophagitis; I25.2 Old myocardial infarction; Z95.5 Presence of coronary angioplasty implant and graft; Z86.711 Personal history of pulmonary embolism; Z86.718 Personal history of other venous thrombosis and embolism; F32.9 Major depressive disorder, single episode, unspecified; F41.9 Anxiety disorder, unspecified; Z87.891 Personal history of nicotine dependence; Z88.0 Allergy status to penicillin; Z79.02 Long term (current) use of antithrombotics/antiplatelets
CPT/HCPCS: 71010; 80053; 81003; 83605; 85027; 87040; 87070; 87075; 87077; 87147; 87186; 87205; 87502; 99281; 99285; J0692; J1200; J2270; J2405; J7040; J7050

== ENCOUNTER 2017-07-31 19:17 | Emergency (ER) | payer OTHER ==
[~2017-07-31] VITALS: Ht 175.3 cm; Wt 142.8 kg
[2017-07-31 21:17] VITALS: BP 110/67
== END 2017-07-31 21:17 | disposition home or self-care (01) ==
LOC: EME 19:17
DX: S70.01XA Contusion of right hip, initial encounter (principal); S39.011A Strain of muscle, fascia and tendon of abdomen, initial encounter; W18.30XA Fall on same level, unspecified, initial encounter; I10 Essential (primary) hypertension; J44.9 Chronic obstructive pulmonary disease, unspecified; Z79.02 Long term (current) use of antithrombotics/antiplatelets; Z95.5 Presence of coronary angioplasty implant and graft; Z86.711 Personal history of pulmonary embolism; Z86.718 Personal history of other venous thrombosis and embolism; Z87.891 Personal history of nicotine dependence
CPT/HCPCS: 73502; 99281; 99283

== ENCOUNTER 2017-09-07 18:48 | Emergency (ER) | payer OTHER ==
[~2017-09-07] VITALS: Ht 175.3 cm; Wt 146.8 kg
[2017-09-07] MEDS ORDERED: NORCO 5/3251 TABLET PO (19:38)
[2017-09-07] MEDS ORDERED: AMOXICILLIN875 MG PO (19:38)
[2017-09-07 20:40] VITALS: BP 170/90
== END 2017-09-07 20:41 | disposition home or self-care (01) ==
LOC: EME 18:48
DX: K08.89 Other specified disorders of teeth and supporting structures (principal); Z88.0 Allergy status to penicillin; Z88.1 Allergy status to other antibiotic agents; Z88.5 Allergy status to narcotic agent; Z88.6 Allergy status to analgesic agent; Z91.041 Radiographic dye allergy status
CPT/HCPCS: 99281; 99283

== ENCOUNTER 2017-09-21 22:05 | Emergency (ER) | payer OTHER ==
[~2017-09-21] VITALS: Ht 175.3 cm; Wt 144.4 kg
[~2017-09-21 22:05] MED LIST changes: +AMOXICILLIN875 MG PO
[2017-09-21 23:08] LABS: HEMATOCRIT 36.8 % (36.0-46.0); HEMOGLOBIN 11.5 G/DL (11.9-15.5); MCH 28.6 PG (29.0-34.0); MCHC 31.3 G/DL (30.0-36.0); MCV 91.5 FL (83-99); PLATELET COUNT 280 K/uL (156-360); RBC DIS.WIDTH-CV 15.5 % (11.8-14.6); RBC DIS.WIDTH-SD 51.9 % (39-53); RED BLOOD COUNT 4.02 M/uL (3.80-5.20); WHITE BLOOD COUNT 6.4 K/uL (4.1-10.2)
[2017-09-21 23:16] LABS: ALBUMIN 3.8 g/dL (3.2-4.8); CHLORIDE 107 mEq/L (99-109); POTASSIUM 4.1 mEq/L (3.7-5.4); SODIUM 143 mEq/L (136-147)
[2017-09-21 23:19] LABS: GLUCOSE 88 mg/dL (70-99); TOTAL PROTEIN 7.6 g/dL (6.4-8.3)
[2017-09-21 23:21] LABS: TOTAL BILIRUBIN 0.3 mg/dL (0.0-1.0)
[2017-09-21 23:22] LABS: ALKALINE PHOSPHATASE 64 IU/L (3-129); GFR ESTIMATE (CALCULATED) > 59 mL/min/
[2017-09-21 23:23] LABS: UREA NITROGEN (BUN) 19 mg/dL (9-23)
[2017-09-21 23:24] LABS: AST (GOT) 11 IU/L (2-34)
[2017-09-21 23:25] LABS: ALT (GPT) 9 IU/L (3-49)
[2017-09-21 23:33] LABS: QUANTITATIVE HCG < 4.0 MIU/ML
[2017-09-22 07:42] LABS: APPEARANCE SL.HAZY ((CLEAR)); BILIRUBIN NEGATIVE; BLOOD NEGATIVE; COLOR YELLOW ((YELLOW)); GLUCOSE (STRIP) NEGATIVE; KETONES NEGATIVE; LEUKOCYTES TRACE; NITRITE NEGATIVE; PROTEIN (STRIP) NEGATIVE; SPECIFIC GRAVITY 1.017 (1.000-1.030); UROBILINOGEN 0.2 MG/DL (0.2-1.0)
[2017-09-22 08:02] LABS: BACTERIA NONE SEEN /HPF; EPITHELIAL CELLS 1+ /HPF; MUCUS TRACE /LPF; RED BLOOD CELLS 0-5 /HPF (0-5); UCUL ADDED? YES
[2017-09-22] MEDS ORDERED: ZOFRAN ODT8 MG PO (13:30)
[2017-09-22] MEDS ORDERED: NORCO 5/3251 TABLET PO (14:20)
[2017-09-22 14:34] VITALS: BP 120/70
== END 2017-09-22 14:35 | disposition home or self-care (01) ==
LOC: EME 22:05
DX: R11.2 Nausea with vomiting, unspecified (principal); R19.7 Diarrhea, unspecified; M79.661 Pain in right lower leg; Z48.00 Encounter for change or removal of nonsurgical wound dressing; L97.828 Non-pressure chronic ulcer of other part of left lower leg with other specified severity; L88 Pyoderma gangrenosum; I11.0 Hypertensive heart disease with heart failure; J44.9 Chronic obstructive pulmonary disease, unspecified; E78.5 Hyperlipidemia, unspecified; F32.9 Major depressive disorder, single episode, unspecified; F41.9 Anxiety disorder, unspecified; K21.9 Gastro-esophageal reflux disease without esophagitis; I25.2 Old myocardial infarction; Z86.718 Personal history of other venous thrombosis and embolism; Z86.711 Personal history of pulmonary embolism; Z87.442 Personal history of urinary calculi; Z85.9 Personal history of malignant neoplasm, unspecified; Z95.5 Presence of coronary angioplasty implant and graft; Z90.49 Acquired absence of other specified parts of digestive tract; Z91.041 Radiographic dye allergy status; Z88.0 Allergy status to penicillin; Z88.6 Allergy status to analgesic agent; Z88.5 Allergy status to narcotic agent; Z88.8 Allergy status to other drugs, medicaments and biological substances
CPT/HCPCS: 76705; 80053; 81003; 84702; 85027; 87086; 93971; 99281; 99284; J1650; J2270

== ENCOUNTER 2017-09-29 22:23 | Emergency (ER) | payer OTHER ==
[~2017-09-29] VITALS: Ht 175.3 cm; Wt 138.3 kg
[2017-09-29 23:58] LABS: HEMATOCRIT 34.5 % (36.0-46.0); HEMOGLOBIN 11.2 G/DL (11.9-15.5); MCH 29.1 PG (29.0-34.0); MCHC 32.5 G/DL (30.0-36.0); MCV 89.6 FL (83-99); PLATELET COUNT 207 K/uL (156-360); RBC DIS.WIDTH-CV 15.6 % (11.8-14.6); RBC DIS.WIDTH-SD 50.5 % (39-53); RED BLOOD COUNT 3.85 M/uL (3.80-5.20); WHITE BLOOD COUNT 8.3 K/uL (4.1-10.2)
[2017-09-30 00:18] LABS: CHLORIDE 106 mEq/L (99-109); SODIUM 138 mEq/L (136-147)
[2017-09-30 00:19] LABS: GLUCOSE 97 mg/dL (70-99)
[2017-09-30 00:23] LABS: CREATININE 0.7 mg/dL (0.6-1.3); GFR ESTIMATE (CALCULATED) > 59 mL/min/; TROP-I INTERPRETATION NEGATIVE; TROPONIN-I < 0.01 ng/mL (0.0-0.30)
[2017-09-30 00:24] LABS: UREA NITROGEN (BUN) 20 mg/dL (9-23)
[2017-09-30 03:07] VITALS: BP 133/72
== END 2017-09-30 03:26 | disposition home or self-care (01) ==
LOC: EME 22:23
PROVIDERS: Emergency Medicine Emergency Medical Services
DX: R00.2 Palpitations (principal); F41.9 Anxiety disorder, unspecified; R07.89 Other chest pain; I87.2 Venous insufficiency (chronic) (peripheral); I11.0 Hypertensive heart disease with heart failure; I50.9 Heart failure, unspecified; I25.2 Old myocardial infarction; K21.9 Gastro-esophageal reflux disease without esophagitis; J44.9 Chronic obstructive pulmonary disease, unspecified; E78.5 Hyperlipidemia, unspecified; R56.9 Unspecified convulsions; G43.909 Migraine, unspecified, not intractable, without status migrainosus; F32.9 Major depressive disorder, single episode, unspecified; F31.9 Bipolar disorder, unspecified; Z87.442 Personal history of urinary calculi; Z86.718 Personal history of other venous thrombosis and embolism; Z86.711 Personal history of pulmonary embolism; Z95.5 Presence of coronary angioplasty implant and graft; Z86.73 Personal history of transient ischemic attack (TIA), and cerebral infarction without residual deficits; Z90.49 Acquired absence of other specified parts of digestive tract; Z88.8 Allergy status to other drugs, medicaments and biological substances
CPT/HCPCS: 80048; 84484; 85027; 93005; 99281; 99285; J0780; J2060

== ENCOUNTER 2017-10-06 23:18 | Emergency (ER) | payer OTHER ==
[~2017-10-06] VITALS: Ht 175.3 cm; Wt 145.4 kg
[2017-10-07 03:57] VITALS: BP 138/89
== END 2017-10-07 03:58 | disposition home or self-care (01) ==
LOC: EME 23:18
DX: F32.9 Major depressive disorder, single episode, unspecified (principal); Z63.4 Disappearance and death of family member; J02.9 Acute pharyngitis, unspecified; Z80.9 Family history of malignant neoplasm, unspecified; J44.9 Chronic obstructive pulmonary disease, unspecified; I10 Essential (primary) hypertension; I25.2 Old myocardial infarction; Z86.718 Personal history of other venous thrombosis and embolism; Z86.711 Personal history of pulmonary embolism; Z95.5 Presence of coronary angioplasty implant and graft; Z79.02 Long term (current) use of antithrombotics/antiplatelets; Z79.891 Long term (current) use of opiate analgesic
CPT/HCPCS: 99281; 99283

== ENCOUNTER 2018-01-21 20:26 | Emergency (ER) | payer OTHER ==
[~2018-01-21] VITALS: Ht 175.3 cm; Wt 135.0 kg
[2018-01-21 21:52] LABS: HEMATOCRIT 32.6 % (36.0-46.0); HEMOGLOBIN 10.9 G/DL (11.9-15.5); MCHC 33.4 G/DL (30.0-36.0); MCV 92.6 FL (83-99); PLATELET COUNT 226 K/uL (156-360); RBC DIS.WIDTH-CV 13.3 % (11.8-14.6); RBC DIS.WIDTH-SD 45.1 % (39-53); RED BLOOD COUNT 3.52 M/uL (3.80-5.20); WHITE BLOOD COUNT 5.9 K/uL (4.1-10.2)
[2018-01-21 21:59] LABS: ALBUMIN 3.9 g/dL (3.2-4.8); CHLORIDE 109 mEq/L (99-109); POTASSIUM 4.2 mEq/L (3.7-5.4); SODIUM 143 mEq/L (136-147)
[2018-01-21 22:01] LABS: GLUCOSE 96 mg/dL (70-99)
[2018-01-21 22:02] LABS: TOTAL PROTEIN 6.9 g/dL (6.4-8.3)
[2018-01-21 22:03] LABS: TOTAL BILIRUBIN 0.4 mg/dL (0.0-1.0)
[2018-01-21 22:05] LABS: ALKALINE PHOSPHATASE 70 IU/L (3-129); CREATININE 0.8 mg/dL (0.6-1.3); GFR ESTIMATE (CALCULATED) > 59 mL/min/
[2018-01-21 22:06] LABS: UREA NITROGEN (BUN) 26 mg/dL (9-23)
[2018-01-21 22:07] LABS: AST (GOT) 13 IU/L (2-34)
[2018-01-21 22:08] LABS: ALT (GPT) 9 IU/L (3-49)
[2018-01-21 22:09] LABS: LIPASE 41 U/L (1.0-51.0)
[2018-01-22] MEDS ORDERED: ZOFRAN ODT4 MG PO (00:27)
[2018-01-22 02:30] VITALS: BP 145/84
== END 2018-01-22 02:30 | disposition home or self-care (01) ==
LOC: EME 20:26
PROVIDERS: Physician Assistant
DX: R10.33 Periumbilical pain (principal); G89.29 Other chronic pain; R11.2 Nausea with vomiting, unspecified; I11.0 Hypertensive heart disease with heart failure; I50.9 Heart failure, unspecified; I25.2 Old myocardial infarction; K21.9 Gastro-esophageal reflux disease without esophagitis; J44.9 Chronic obstructive pulmonary disease, unspecified; E78.5 Hyperlipidemia, unspecified; R56.9 Unspecified convulsions; G43.909 Migraine, unspecified, not intractable, without status migrainosus; F41.9 Anxiety disorder, unspecified; F32.9 Major depressive disorder, single episode, unspecified; F31.9 Bipolar disorder, unspecified; Z87.442 Personal history of urinary calculi; Z86.718 Personal history of other venous thrombosis and embolism; Z86.711 Personal history of pulmonary embolism; Z90.49 Acquired absence of other specified parts of digestive tract; Z95.5 Presence of coronary angioplasty implant and graft; Z88.5 Allergy status to narcotic agent; Z88.0 Allergy status to penicillin; Z88.1 Allergy status to other antibiotic agents; Z88.6 Allergy status to analgesic agent; Z91.041 Radiographic dye allergy status
CPT/HCPCS: 74019; 80053; 81003; 83690; 85027; 99281; 99285; J1170; J1200; J2270; J2920; J7050; S0028

== ENCOUNTER 2018-01-30 20:46 | Observation (INO) | payer OTHER ==
[~2018-01-30] VITALS: Ht 175.3 cm; Wt 138.0 kg
[~2018-01-30 20:46] MED LIST changes: +K-DUR20 MEQ PO
[2018-01-30 21:49] LABS: HEMATOCRIT 35.2 % (36.0-46.0); HEMOGLOBIN 11.5 G/DL (11.9-15.5); MCH 30.7 PG (29.0-34.0); MCHC 32.7 G/DL (30.0-36.0); MCV 93.9 FL (83-99); PLATELET COUNT 212 K/uL (156-360); RBC DIS.WIDTH-CV 13.3 % (11.8-14.6); RED BLOOD COUNT 3.75 M/uL (3.80-5.20); WHITE BLOOD COUNT 5.2 K/uL (4.1-10.2)
[2018-01-30 21:59] LABS: CHLORIDE 109 mEq/L (99-109); SODIUM 143 mEq/L (136-147)
[2018-01-30 22:01] LABS: GLUCOSE 86 mg/dL (70-99)
[2018-01-30 22:04] LABS: CREATININE 0.8 mg/dL (0.6-1.3); GFR ESTIMATE (CALCULATED) > 59 mL/min/
[2018-01-30 22:05] LABS: UREA NITROGEN (BUN) 16 mg/dL (9-23)
[2018-01-30 22:10] LABS: TROP-I INTERPRETATION NEGATIVE; TROPONIN-I < 0.01 ng/mL (0.0-0.30)
[2018-01-30 22:15] LABS: D-DIMER ELISA < 150.00 ng/mLDDU (<230)
[2018-01-30 22:16] LABS: TOTAL PROTEIN 7.2 g/dL (6.4-8.3)
[2018-01-30 22:18] LABS: TOTAL BILIRUBIN 0.5 mg/dL (0.0-1.0)
[2018-01-30 22:19] LABS: ALKALINE PHOSPHATASE 74 IU/L (3-129)
[2018-01-30 22:22] LABS: ALT (GPT) 10 IU/L (3-49); AST (GOT) 11 IU/L (2-34); DIRECT BILIRUBIN 0.2 mg/dL (0.0-0.3)
[2018-01-30 22:23] LABS: LIPASE 24 U/L (1.0-51.0)
[2018-01-30] MEDS ORDERED: FLEXERIL10 MG PO (23:09)
[2018-01-30] MEDS ORDERED: LASIX40 MG PO (23:11)
[2018-01-30] MEDS ORDERED: ZOFRAN4 MG PO (23:14)
[2018-01-31] VITALS (7 sets, daily range): BP systolic 129–148; BP diastolic 66–89
[2018-01-31 10:21] LABS: BASOPHIL (%) 0.5 % (0-1); HEMATOCRIT 34.8 % (36.0-46.0); HEMOGLOBIN 10.6 G/DL (11.9-15.5); IMMATURE GRANULOCYTE (%) 0.2 % (0.0-0.7); LYMPHOCYTE (%) 30.4 % (15-42); LYMPHOCYTE COUNT 1.2 K/uL (1.0-2.8); MCH 29.3 PG (29.0-34.0); MCHC 30.5 G/DL (30.0-36.0); MCV 96.1 FL (83-99); MONOCYTE (%) 10.9 % (3-12); MONOCYTE COUNT 0.4 K/uL (0-0.8); NEUTROPHIL COUNT 2.3 K/uL (1.8-6.4); PLATELET COUNT 169 K/uL (156-360); RBC DIS.WIDTH-CV 13.4 % (11.8-14.6); RBC DIS.WIDTH-SD 47.9 % (39-53); RED BLOOD COUNT 3.62 M/uL (3.80-5.20); WHITE BLOOD COUNT 4.1 K/uL (4.1-10.2)
[2018-01-31 10:53] LABS: TROP-I INTERPRETATION NEGATIVE; TROPONIN-I < 0.01 ng/mL (0.0-0.30)
[2018-01-31 11:04] LABS: THYROTROPIN (TSH) 6.2 MIU/L (0.4-5.5)
[2018-01-31 15:48] LABS: STOOL OCCULT BLD 1ST SPECIMEN NEGATIVE
[2018-02-01] VITALS (7 sets, daily range): BP systolic 120–155; BP diastolic 55–81
[2018-02-01 05:34] LABS: BASOPHIL (%) 0.3 % (0-1); EOSINOPHIL (%) 1.3 % (0-5); EOSINOPHIL COUNT 0.1 K/uL (0-0.3); HEMOGLOBIN 10.7 G/DL (11.9-15.5); IMMATURE GRANULOCYTE (%) 0.3 % (0.0-0.7); LYMPHOCYTE (%) 37.8 % (15-42); LYMPHOCYTE COUNT 1.5 K/uL (1.0-2.8); MCHC 31.5 G/DL (30.0-36.0); MCV 95.2 FL (83-99); MONOCYTE (%) 9.3 % (3-12); MONOCYTE COUNT 0.4 K/uL (0-0.8); PLATELET COUNT 189 K/uL (156-360); RBC DIS.WIDTH-CV 13.4 % (11.8-14.6); RBC DIS.WIDTH-SD 46.7 % (39-53); RED BLOOD COUNT 3.57 M/uL (3.80-5.20)
[2018-02-01 05:56] LABS: CHLORIDE 108 MEQ/L (99-109); CREATININE 0.8 MG/DL (0.6-1.3); GFR ESTIMATE (CALCULATED) > 59 mL/min/; GLUCOSE 90 mg/dL (70-99); POTASSIUM 3.9 MEQ/L (3.7-5.4); SODIUM 141 MEQ/L (136-147); UREA NITROGEN (BUN) 16 mg/dL (9-23)
[2018-02-02 03:06] VITALS: BP 97/54
[2018-02-02 07:21] VITALS: BP 125/70
[2018-02-02] MEDS ORDERED: PERCOCET 10/1 TABLET PO (09:23)
[2018-02-02] MEDS ORDERED: XANAX1 MG PO (09:23)
[2018-02-02 11:22] VITALS: BP 131/75
== END 2018-02-02 15:00 | disposition home or self-care (01) ==
LOC: EME 20:46 → 4SOUTH 23:52 → EDOF 23:52 → ENRESERV 23:53 → 4SOUTH 01-31 01:36
PROVIDERS: Internal Medicine; Physician Assistant; Physician Assistant Medical
PROC: 0DB68ZX Excision of Stomach, Via Natural or Artificial Opening Endoscopic, Diagnostic (ICD-10-PCS; principal; 2018-02-01)
DX: R10.13 Epigastric pain (principal); R11.10 Vomiting, unspecified; R94.6 Abnormal results of thyroid function studies; I16.0 Hypertensive urgency; K25.9 Gastric ulcer, unspecified as acute or chronic, without hemorrhage or perforation; K29.50 Unspecified chronic gastritis without bleeding; K44.9 Diaphragmatic hernia without obstruction or gangrene; D50.9 Iron deficiency anemia, unspecified; F43.21 Adjustment disorder with depressed mood; F41.1 Generalized anxiety disorder; L88 Pyoderma gangrenosum; I89.0 Lymphedema, not elsewhere classified; I87.303 Chronic venous hypertension (idiopathic) without complications of bilateral lower extremity; E66.01 Morbid (severe) obesity due to excess calories; Z68.42 Body mass index [BMI] 45.0-49.9, adult; I25.10 Atherosclerotic heart disease of native coronary artery without angina pectoris; Z95.5 Presence of coronary angioplasty implant and graft; I48.0 Paroxysmal atrial fibrillation; I25.2 Old myocardial infarction; I11.0 Hypertensive heart disease with heart failure; I50.9 Heart failure, unspecified; Z86.718 Personal history of other venous thrombosis and embolism; Z86.711 Personal history of pulmonary embolism; Z87.891 Personal history of nicotine dependence; J44.9 Chronic obstructive pulmonary disease, unspecified; G47.33 Obstructive sleep apnea (adult) (pediatric); E78.5 Hyperlipidemia, unspecified; Z79.01 Long term (current) use of anticoagulants; E03.9 Hypothyroidism, unspecified; Z86.14 Personal history of Methicillin resistant Staphylococcus aureus infection; Z86.19 Personal history of other infectious and parasitic diseases; K21.9 Gastro-esophageal reflux disease without esophagitis; Z90.49 Acquired absence of other specified parts of digestive tract; Z96.653 Presence of artificial knee joint, bilateral; Z98.890 Other specified postprocedural states; Z83.3 Family history of diabetes mellitus; Z80.3 Family history of malignant neoplasm of breast; Z82.49 Family history of ischemic heart disease and other diseases of the circulatory system; Z80.0 Family history of malignant neoplasm of digestive organs; I87.2 Venous insufficiency (chronic) (peripheral); Z88.0 Allergy status to penicillin; Z88.1 Allergy status to other antibiotic agents; Z88.5 Allergy status to narcotic agent; Z88.8 Allergy status to other drugs, medicaments and biological substances; Z91.041 Radiographic dye allergy status
CPT/HCPCS: 71046; 74019; 74176; 80048; 80076; 82272; 83605; 83690; 84439; 84443; 84484; 85025; 85027; 85379; 88305; 88342 TC; 93005; 99202; 99281; 99285; G0378; J0500; J0780; J1200; J1650; J2250; J2270; J2405; J7030; J7502

== ENCOUNTER 2018-02-06 20:58 | Emergency (ER) | payer OTHER ==
[~2018-02-06] VITALS: Ht 175.3 cm; Wt 130.8 kg
[~2018-02-06 20:58] MED LIST changes: +PERCOCET 10/1 TABLET PO
[2018-02-06 21:17] LABS: HEMATOCRIT 32.9 % (36.0-46.0); HEMOGLOBIN 10.8 G/DL (11.9-15.5); MCH 30.3 PG (29.0-34.0); MCHC 32.8 G/DL (30.0-36.0); MCV 92.4 FL (83-99); RBC DIS.WIDTH-CV 13.1 % (11.8-14.6); RBC DIS.WIDTH-SD 44.1 % (39-53); RED BLOOD COUNT 3.56 M/uL (3.80-5.20); WHITE BLOOD COUNT 11.3 K/uL (4.1-10.2)
[2018-02-06 21:24] LABS: PLATELET COUNT 279 K/uL (156-360)
[2018-02-06 21:29] LABS: CHLORIDE 102 mEq/L (99-109); POTASSIUM 4.4 mEq/L (3.7-5.4); SODIUM 138 mEq/L (136-147)
[2018-02-06 21:31] LABS: GLUCOSE 93 mg/dL (70-99); TOTAL PROTEIN 7.6 g/dL (6.4-8.3)
[2018-02-06 21:34] LABS: ALKALINE PHOSPHATASE 80 IU/L (3-129)
[2018-02-06 21:36] LABS: AST (GOT) 10 IU/L (2-34); CREATININE 1.6 mg/dL (0.6-1.3); GFR ESTIMATE (CALCULATED) 35 mL/min/; TOTAL BILIRUBIN 0.8 mg/dL (0.0-1.0); UREA NITROGEN (BUN) 34 mg/dL (9-23)
[2018-02-06 21:37] LABS: ALT (GPT) 19 IU/L (3-49)
[2018-02-06 21:38] LABS: LIPASE 22 U/L (1.0-51.0)
[2018-02-07 00:04] LABS: APPEARANCE TURBID ((CLEAR)); BILIRUBIN NEGATIVE; BLOOD MODERATE; COLOR YELLOW ((YELLOW)); GLUCOSE (STRIP) NEGATIVE; KETONES NEGATIVE; LEUKOCYTES LARGE; NITRITE POSITIVE; PROTEIN (STRIP) 100; SPECIFIC GRAVITY 1.018 (1.000-1.030); UROBILINOGEN 0.2 MG/DL (0.2-1.0)
[2018-02-07 00:09] LABS: BACTERIA NONE SEEN /HPF; EPITHELIAL CELLS 2+ /HPF; MUCUS NONE SEEN /LPF; RED BLOOD CELLS TNTC /HPF (0-5); UCUL ADDED? YES; WHITE BLOOD CELLS TNTC /HPF (0-5)
[2018-02-07 01:18] VITALS: BP 102/62
== END 2018-02-07 01:19 | disposition home or self-care (01) ==
LOC: EME → EDBD 20:58 → EME 20:58
DX: E86.0 Dehydration (principal); R11.2 Nausea with vomiting, unspecified; R19.7 Diarrhea, unspecified; R10.84 Generalized abdominal pain; E78.5 Hyperlipidemia, unspecified; F32.9 Major depressive disorder, single episode, unspecified; F41.9 Anxiety disorder, unspecified; I11.0 Hypertensive heart disease with heart failure; I50.9 Heart failure, unspecified; I25.2 Old myocardial infarction; J44.9 Chronic obstructive pulmonary disease, unspecified; K21.9 Gastro-esophageal reflux disease without esophagitis; Z95.5 Presence of coronary angioplasty implant and graft; Z88.1 Allergy status to other antibiotic agents; Z88.0 Allergy status to penicillin; Z88.5 Allergy status to narcotic agent; Z87.891 Personal history of nicotine dependence; Z87.442 Personal history of urinary calculi
CPT/HCPCS: 71046; 74019; 80053; 81003; 83690; 85027; 87077; 87086; 87147; 87186; 99281; 99284; J1630; J2405; J7030

== ENCOUNTER 2018-02-23 18:23 | Emergency (ER) | payer OTHER ==
[~2018-02-23] VITALS: Ht 175.3 cm; Wt 132.2 kg
[2018-02-23] MEDS ORDERED: NAPROSYN500 MG PO (20:35)
[2018-02-23] MEDS ORDERED: TRAMADOL HCL50 MG PO (20:35)
[2018-02-23] MEDS ORDERED: PEN-VEE K,VEET500 MG PO (20:35)
[2018-02-23] MEDS ORDERED: LORTAB 5-325 M1 EACH PO (20:58)
[2018-02-23 21:02] VITALS: BP 101/75
== END 2018-02-23 21:03 | disposition home or self-care (01) ==
LOC: EME 18:23
DX: K04.7 Periapical abscess without sinus (principal); S02.5XXA Fracture of tooth (traumatic), initial encounter for closed fracture; Z88.5 Allergy status to narcotic agent; Z88.0 Allergy status to penicillin; Z88.1 Allergy status to other antibiotic agents; Z88.6 Allergy status to analgesic agent; Z91.041 Radiographic dye allergy status
CPT/HCPCS: 99281; 99284; J1885

== ENCOUNTER 2018-02-25 22:55 | Emergency (ER) | payer OTHER ==
[~2018-02-25] VITALS: Ht 175.3 cm; Wt 134.3 kg
[~2018-02-25 22:55] MED LIST changes: +PEN-VEE K,VEET500 MG PO; +TRAMADOL HCL50 MG PO
[2018-02-26] LABS: HEMATOCRIT 31.8 % (36.0-46.0); HEMOGLOBIN 10.1 G/DL (11.9-15.5); MCH 29.4 PG (29.0-34.0); MCHC 31.8 G/DL (30.0-36.0); MCV 92.7 FL (83-99); PLATELET COUNT 353 K/uL (156-360); RBC DIS.WIDTH-CV 13.3 % (11.8-14.6); RBC DIS.WIDTH-SD 44.9 % (39-53); RED BLOOD COUNT 3.43 M/uL (3.80-5.20); WHITE BLOOD COUNT 5.7 K/uL (4.1-10.2)
[2018-02-26 00:07] LABS: ALBUMIN 3.8 g/dL (3.2-4.8)
[2018-02-26 00:08] LABS: CHLORIDE 108 mEq/L (99-109); POTASSIUM 3.8 mEq/L (3.7-5.4); SODIUM 140 mEq/L (136-147)
[2018-02-26 00:10] LABS: GLUCOSE 111 mg/dL (70-99); TOTAL PROTEIN 7.6 g/dL (6.4-8.3)
[2018-02-26 00:12] LABS: TOTAL BILIRUBIN 0.2 mg/dL (0.0-1.0)
[2018-02-26 00:13] LABS: ALKALINE PHOSPHATASE 68 IU/L (3-129); CREATININE 0.8 mg/dL (0.6-1.3); GFR ESTIMATE (CALCULATED) > 59 mL/min/
[2018-02-26 00:15] LABS: AST (GOT) 9 IU/L (2-34); UREA NITROGEN (BUN) 28 mg/dL (9-23)
[2018-02-26 00:16] LABS: ALT (GPT) 8 IU/L (3-49)
[2018-02-26] MEDS ORDERED: SKELAXIN800 MG PO (00:43)
[2018-02-26 00:57] VITALS: BP 136/76
== END 2018-02-26 00:45 | disposition home or self-care (01) ==
LOC: EME 22:55
PROVIDERS: Physician Assistant
DX: G56.22 Lesion of ulnar nerve, left upper limb (principal); M62.838 Other muscle spasm; Z86.73 Personal history of transient ischemic attack (TIA), and cerebral infarction without residual deficits; I48.91 Unspecified atrial fibrillation; F32.9 Major depressive disorder, single episode, unspecified; I50.9 Heart failure, unspecified; K21.9 Gastro-esophageal reflux disease without esophagitis; I25.2 Old myocardial infarction; J44.9 Chronic obstructive pulmonary disease, unspecified; E78.5 Hyperlipidemia, unspecified; Z95.5 Presence of coronary angioplasty implant and graft; Z90.49 Acquired absence of other specified parts of digestive tract; Z88.1 Allergy status to other antibiotic agents; Z88.0 Allergy status to penicillin; Z87.891 Personal history of nicotine dependence
CPT/HCPCS: 80053; 85027; 99281; 99284

== ENCOUNTER 2018-03-19 14:24 | Emergency (ER) | payer OTHER ==
[~2018-03-19] VITALS: Ht 175.3 cm; Wt 134.6 kg
[~2018-03-19 14:24] MED LIST changes: +SKELAXIN800 MG PO
[2018-03-19] MEDS ORDERED: PEN-VEE K,VEET500 MG PO (15:13)
[2018-03-19] MEDS ORDERED: VICODIN 5-3001 EACH PO (15:17)
[2018-03-19] MEDS ORDERED: HYDROCODON-ACE1 EAC7 PO (15:18)
[2018-03-19 15:54] VITALS: BP 118/93
== END 2018-03-19 16:04 | disposition home or self-care (01) ==
LOC: EME 14:24 → EXP 14:24
PROC: 0C9XXZ0 Drainage of Lower Tooth, External Approach, Single (ICD-10-PCS; principal; 2018-03-19)
DX: K04.7 Periapical abscess without sinus (principal); J44.9 Chronic obstructive pulmonary disease, unspecified; Z86.711 Personal history of pulmonary embolism; Z86.718 Personal history of other venous thrombosis and embolism; Z86.73 Personal history of transient ischemic attack (TIA), and cerebral infarction without residual deficits; Z88.6 Allergy status to analgesic agent; Z88.0 Allergy status to penicillin; Z88.1 Allergy status to other antibiotic agents; Z88.5 Allergy status to narcotic agent; Z91.041 Radiographic dye allergy status
CPT/HCPCS: 99281; 99283

== ENCOUNTER 2018-04-08 13:42 | Emergency (ER) | payer OTHER ==
[~2018-04-08] VITALS: Ht 175.3 cm; Wt 137.7 kg
[2018-04-08 15:50] LABS: HEMATOCRIT 30.4 % (36.0-46.0); HEMOGLOBIN 9.8 G/DL (11.9-15.5); MCHC 32.2 G/DL (30.0-36.0); PLATELET COUNT 204 K/uL (156-360); RBC DIS.WIDTH-CV 14.4 % (11.8-14.6); RBC DIS.WIDTH-SD 49.1 % (39-53); RED BLOOD COUNT 3.27 M/uL (3.80-5.20); WHITE BLOOD COUNT 4.7 K/uL (4.1-10.2)
[2018-04-08 15:59] LABS: CHLORIDE 108 mEq/L (99-109); INTER. NORMALIZED RATIO 1.2; POTASSIUM 4.2 mEq/L (3.7-5.4); SODIUM 142 mEq/L (136-147)
[2018-04-08 16:01] LABS: GLUCOSE 89 mg/dL (70-99); PTT 38.3 SEC (25-37)
[2018-04-08 16:05] LABS: CREATININE 0.8 mg/dL (0.6-1.3); GFR ESTIMATE (CALCULATED) > 59 mL/min/; UREA NITROGEN (BUN) 24 mg/dL (9-23)
[2018-04-08 16:12] LABS: TROP-I INTERPRETATION NEGATIVE; TROPONIN-I < 0.01 ng/mL (0.0-0.30)
[2018-04-08] MEDS ORDERED: FLEXERIL10 MG PO (17:46)
[2018-04-08 18:44] VITALS: BP 96/67
== END 2018-04-08 18:45 | disposition home or self-care (01) ==
LOC: EME 13:42 → RME 13:42
PROVIDERS: Physician Assistant
DX: M79.604 Pain in right leg (principal); Z86.718 Personal history of other venous thrombosis and embolism; Z86.711 Personal history of pulmonary embolism; R00.1 Bradycardia, unspecified; I44.0 Atrioventricular block, first degree; I11.0 Hypertensive heart disease with heart failure; I50.9 Heart failure, unspecified; J44.9 Chronic obstructive pulmonary disease, unspecified; K21.9 Gastro-esophageal reflux disease without esophagitis; E78.5 Hyperlipidemia, unspecified; I25.2 Old myocardial infarction; F32.9 Major depressive disorder, single episode, unspecified; F31.9 Bipolar disorder, unspecified; F41.9 Anxiety disorder, unspecified; Z87.442 Personal history of urinary calculi; Z90.49 Acquired absence of other specified parts of digestive tract; Z88.0 Allergy status to penicillin; Z88.1 Allergy status to other antibiotic agents; Z88.5 Allergy status to narcotic agent; Z88.6 Allergy status to analgesic agent; Z88.8 Allergy status to other drugs, medicaments and biological substances; Z91.041 Radiographic dye allergy status
CPT/HCPCS: 71046; 80048; 84484; 85027; 85610; 85730; 93005; 93971

== ENCOUNTER 2018-05-15 19:17 | Emergency (ER) | payer OTHER ==
[~2018-05-15] VITALS: Ht 175.3 cm; Wt 136.6 kg
[2018-05-15] MEDS ORDERED: PEN-VEE K,VEET500 MG PO (21:25)
[2018-05-15 21:51] VITALS: BP 150/80
== END 2018-05-15 21:54 | disposition home or self-care (01) ==
LOC: EME 19:17
PROC: 0C9WXZ0 Drainage of Upper Tooth, External Approach, Single (ICD-10-PCS; principal; 2018-05-15)
DX: K04.7 Periapical abscess without sinus (principal); J43.9 Emphysema, unspecified; Z88.1 Allergy status to other antibiotic agents; Z88.0 Allergy status to penicillin; Z88.5 Allergy status to narcotic agent; Z91.041 Radiographic dye allergy status; Z87.891 Personal history of nicotine dependence
CPT/HCPCS: 99281; 99284